=== PATIENT | female | born 1940 | race Caucasian/White ===

== ENCOUNTER → 2024-12-13 | Outpatient (CLI) | payer MEDICARE, SELFPAY | END | disposition home or self-care (01) | PROVIDERS: PCP Internal Medicine; Referring Provider Urology; Visit Provider Urology | DX: N39.0 Urinary tract infection, site not specified (principal) | CPT/HCPCS: 87077; 87086; 87088; 87186 ==

== ENCOUNTER → 2025-01-08 | Outpatient (CLI) | payer MEDICARE, SELFPAY ==
--- NOTE | 2025-01-08 14:59 | CT_ITS ---
PROCEDURE: CT ABD/PELVIS W/WO CONTRAST 01/08/2025 REASON FOR EXAM: Recurrent UTIs. TECHNIQUE: Abdomen and pelvis CT with intravenous contrast. Coronal and Sagittal reconstruction series were provided. PATIENT PREPARATION: Per protocol ORAL CONTRAST TYPE: None. CONTRAST: Isovue-300 VOLUME: 100 mL One or more dose reduction techniques were used (e.g., Automated exposure control, adjustment of the mA and/or kV according to patient size, use of iterative reconstruction technique. RADIATION DOSE SUMMARY: CTDlvol: 22.5 mGy DLP: 3302.96 mGycm COMPARISON: None FINDINGS: Lung bases: Unremarkable. Coronary artery calcification. Liver: Minimally dilated central intrahepatic biliary ducts most likely secondary to prior cholecystectomy. Gallbladder: Surgically absent. Spleen: Normal size. Pancreas: Adrenals: Kidneys: There is a 1.8 cm cyst in the lateral portion of the right kidney. Subcentimeter cyst is seen along the anterior aspect of the right kidney. Tiny cysts are also seen in the left kidney. 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 Bladder: Unremarkable Reproductive Organs: Prior hysterectomy. Adnexal regions are unremarkable. Bowel: Patient is status post gastric bypass surgery. Sigmoid diverticulosis. Appendix: Not visualized. Lymph nodes: Unremarkable. Vasculature: Mild diffuse atherosclerotic calcifications are noted. Peritoneum / Retroperitoneum: Unremarkable Bones: Degenerative changes of the spine.. Prior right total hip replacement. CT/CT Abd/Pelvis W/WO Contrast IMPRESSION: Small bilateral renal cysts. Status post gastric bypass surgery and cholecystectomy as well as hysterectomy. Mild degree of central intrahepatic biliary ductal dilatation. OVERALL FINAL ASSESSMENT: . LI-RADS is not meant to be used in patients <18 years or patients with cirrhosi s due to congenital hepatic fibrosis or due to vascular disorders, because these patients have a lower chance of developing HC C. Reading Location: [facility]
[2025-01-08 15:26] LABS: CREATININE FINGERSTICK < 1.0 mg/dL (0.55-1.02); EGFR FINGERSTICK > 60.0000 mL/min (>60)
== END | disposition home or self-care (01) ==
LOC: CT 14:57
PROVIDERS: PCP Internal Medicine; Referring Provider Urology; Visit Provider Urology
DX: N39.0 Urinary tract infection, site not specified (principal); R30.0 Dysuria; N32.81 Overactive bladder
CPT/HCPCS: 74178; Q9967; A4216